=== PATIENT | female | born 1935 | race Caucasian/White ===

== ENCOUNTER → 2017-05-29 12:53 | Outpatient (CLI) | payer MEDICARE, BC ==
[2014-11-09 10:01] VITALS: BMI 24.8
[~2017-05-29 12:53] MED LIST: ACETAMINOPHEN500 M1 PO; ALEVE220 MG PO; CALTRATE 600 M600 M1 PO; ESTER-C 500 MG1 TAB PO; JANTOVEN6 MG PO; LUMIGAN 0.01%2.5 ML EACH EYE; LUTEIN20 MG PO; OSTEO BI-FLEX1 EAC1 PO; RED YEAST RICE600 MG PO; SYNTHROID75 MCG PO; TIAZAC/CARDIZE240 M1 PO; VIBRAMYCIN 100100 MG PO
[2017-05-29 14:33] LABS: APPEARANCE CLEAR (CLEAR); COLOR STRAW (YELLOW)
[2017-05-29 14:34] LABS: BILIRUBIN NEGATIVE (NEGATIVE); GLUCOSE NEGATIVE (NEGATIVE); KETONE NEGATIVE (NEGATIVE); NITRITE NEGATIVE (NEGATIVE); PROTEIN NEGATIVE (NEGATIVE); SPECIFIC GRAVITY 1.005 (1.005-1.020); UROBILINOGEN NORMAL (NORMAL)
== END | disposition home or self-care (01) ==
LOC: D.LABREF 12:53
PROVIDERS: Internal Medicine
DX: N39.0 Urinary tract infection, site not specified (principal); I48.91 Unspecified atrial fibrillation

== ENCOUNTER 2017-05-30 15:41 | Emergency (ER) | payer MEDICARE, BC ==
[2014-11-09 10:01] VITALS: BMI 24.8
[2017-05-30 17:06] LABS: BASOPHILS 0.5 % (0-2); EOSINOPHILS 8.5 % (0-7); HEMATOCRIT 43.1 % (36.0-48.0); IMMATURE GRANULOCYTES 0.2 % (0-5); LYMPHOCYTES 17.9 % (15-50); MCH 30.1 pg (26.0-34.0); MCHC 32.5 g/dL (31.0-37.0); MCV 92.7 fL (80.0-100.0); MEAN PLATELET VOLUME 9.5 fL (7.4-10.4); MONOCYTES 8.3 % (2-11); NEUTROPHILS 64.6 % (40-80); PLATELET COUNT 246 10x3/uL (130-400); RBC 4.65 10x6/uL (4.00-5.40); RDW 14.4 % (11.5-14.5); WBC 6.2 10x3/uL (4.8-10.8)
[2017-05-30 17:19] LABS: ANION GAP 13.7 mmol/L (8-16); BILIRUBIN - TOTAL 0.87 mg/dL (0.2-1.3); CALCIUM 9.1 mg/dL (8.5-10.1); CARBON DIOXIDE 26.5 mmol/L (21.0-32.0); CREATININE - SERUM 0.8 mg/dL (0.6-1.3); POTASSIUM - SERUM 3.2 mmol/L (3.5-5.1)
== END 2017-05-30 17:58 | disposition home or self-care (01) ==
LOC: D.ER 15:41
PROVIDERS: Emergency Medicine
DX: I87.2 Venous insufficiency (chronic) (peripheral) (principal)

== ENCOUNTER 2017-06-07 18:39 | Emergency (ER) | payer MEDICARE, BC ==
[2014-11-09 10:01] VITALS: BMI 24.8
[2017-06-07 19:31] LABS: BASOPHILS 0 % (0-2); HEMATOCRIT 42.5 % (36.0-48.0); HEMOGLOBIN 14.4 g/dL (12-16); IMMATURE GRANULOCYTES 0.2 % (0-5); LYMPHOCYTES 17.7 % (15-50); MCH 30.7 pg (26.0-34.0); MCHC 33.9 g/dL (31.0-37.0); MCV 90.6 fL (80.0-100.0); MEAN PLATELET VOLUME 9.4 fL (7.4-10.4); MONOCYTES 10.2 % (2-11); NEUTROPHILS 69.9 % (40-80); PLATELET COUNT 290 10x3/uL (130-400); RBC 4.69 10x6/uL (4.00-5.40); RDW 14.1 % (11.5-14.5); WBC 8.1 10x3/uL (4.8-10.8)
[2017-06-07 19:48] LABS: ALBUMIN 3.4 g/dL (3.4-5.0); ALKALINE PHOSPHATASE 66 U/L (46-116); ALT (SGPT) 33 U/L (10-68); BILIRUBIN - TOTAL 1.73 mg/dL (0.2-1.3); CALC OSMOLALITY 288 mosm/kg (275-300); CALCIUM 8.8 mg/dL (8.5-10.1); CARBON DIOXIDE 24.1 mmol/L (21.0-32.0); CHLORIDE - SERUM 103 mmol/L (98-107); CREATININE - SERUM 0.7 mg/dL (0.6-1.3); GLUCOSE 103 mg/dL (74-106); SODIUM 142 mmol/L (136-145); UREA NITROGEN 29 mg/dL (7-18); eGFR NON AFRICAN AMERICAN 84 mL/min (90-120)
[2017-06-07 19:53] LABS: CHOL - HDL RATIO 2.5 ratio (2.3-4.1); CHOLESTEROL, TOTAL 252 mg/dL (0-200); CKMB 0.7 U/L (0.0-3.6); CREATINE KINASE 51 UL (21-215); HDL CHOLESTEROL 103 mg/dL (32-96); LDL CHOLESTEROL 139 mg/dL (0-100); LDL-HDL RATIO 1.3 ratio (1.5-3.5); TRIGLYCERIDE 53 mg/dL (30-200)
[2017-06-07 19:57] LABS: TROPONIN-I < 0.017 ng/mL (0.000-0.060)
[2017-06-07 20:31] LABS: MAGNESIUM - SERUM 2.2 mg/dL (1.8-2.4); THYROID STIMULATING HORMONE 2.1 uIU/mL (0.36-3.74)
[2017-06-07 22:39] LABS: CREATINE KINASE 47 UL (21-215); TROPONIN-I < 0.017 ng/mL (0.000-0.060)
== END 2017-06-07 23:28 | disposition home or self-care (01) ==
LOC: D.ER 18:39
PROVIDERS: Emergency Medicine; Family Medicine
DX: E87.6 Hypokalemia (principal); R07.9 Chest pain, unspecified; Z86.39 Personal history of other endocrine, nutritional and metabolic disease

== ENCOUNTER → 2017-08-28 21:02 | Outpatient (CLI) | payer MEDICARE, BC ==
[2014-11-09 10:01] VITALS: BMI 24.8
[2017-08-28 21:45] LABS: APPEARANCE CLEAR (CLEAR); BILIRUBIN NEGATIVE (NEGATIVE); COLOR YELLOW (YELLOW); GLUCOSE NEGATIVE (NEGATIVE); KETONE NEGATIVE (NEGATIVE); NITRITE NEGATIVE (NEGATIVE); PROTEIN NEGATIVE (NEGATIVE); UROBILINOGEN NORMAL (NORMAL)
== END | disposition home or self-care (01) ==
LOC: D.LABREF 21:02
PROVIDERS: Family Medicine Geriatric Medicine
DX: R32 Unspecified urinary incontinence (principal); Z87.440 Personal history of urinary (tract) infections

== ENCOUNTER → 2017-09-01 14:58 | Outpatient (CLI) | payer MEDICARE, BC ==
[2014-11-09 10:01] VITALS: BMI 24.8
[2017-09-01 15:54] LABS: INR 1.4 (0.85-1.17); PROTIME 16.7 SECONDS (11.6-15.0)
== END | disposition home or self-care (01) ==
LOC: D.LABREF 14:58
PROVIDERS: Internal Medicine Hematology
DX: L03.116 Cellulitis of left lower limb (principal); I10 Essential (primary) hypertension; Z51.81 Encounter for therapeutic drug level monitoring; Z79.01 Long term (current) use of anticoagulants

== ENCOUNTER → 2017-09-16 13:25 | Outpatient (CLI) | payer MEDICARE, BC ==
[2014-11-09 10:01] VITALS: BMI 24.8
[2017-09-16 15:00] LABS: INR 2.39 (0.85-1.17); PROTIME 25.4 SECONDS (11.6-15.0)
== END | disposition home or self-care (01) ==
LOC: D.LABREF 13:25
PROVIDERS: Family Medicine
DX: L03.116 Cellulitis of left lower limb (principal); Z51.81 Encounter for therapeutic drug level monitoring; Z79.01 Long term (current) use of anticoagulants; I10 Essential (primary) hypertension; I87.2 Venous insufficiency (chronic) (peripheral)

== ENCOUNTER → 2017-09-24 17:13 | Outpatient (CLI) | payer MEDICARE, BC ==
[2014-11-09 10:01] VITALS: BMI 24.8
[2017-09-24 19:43] LABS: INR 2.82 (0.85-1.17)
== END | disposition home or self-care (01) ==
LOC: D.LABREF 17:13
PROVIDERS: Family Medicine
DX: I10 Essential (primary) hypertension (principal); L03.116 Cellulitis of left lower limb; Z51.81 Encounter for therapeutic drug level monitoring; Z79.01 Long term (current) use of anticoagulants; Z86.718 Personal history of other venous thrombosis and embolism